=== PATIENT | male | born 1980 ===

== ENCOUNTER 2019-10-23 10:16 | Emergency (ER) | payer OTHER ==
[~2019-10-23] VITALS: Ht 177.8 cm; Wt 163.3 kg
[2019-10-23] MEDS ORDERED: COZAAR100 MG (10:47)
[2019-10-23] MEDS ORDERED: DOXYCYCLINE HY100 MG PO (16:20)
[2019-10-23] MEDS ORDERED: KETO10TA2 PO (16:20)
== END 2019-10-23 16:38 | disposition home or self-care (01) ==
LOC: ER 10:16
DX: L03.113 Cellulitis of right upper limb (principal); U07.1 COVID-19